=== PATIENT | female | born 1985 | race Caucasian/White ===

== ENCOUNTER 2021-04-19 19:22 | Emergency (ER) | payer MEDICAID ==
[~2021-04-19] VITALS: Ht 160 cm; Wt 73.0 kg
[2021-04-19 21:44] LABS: CHLORIDE 100 mEq/L (98-107)
[2021-04-19 21:45] LABS: BASOPHILS % 0.5 % (0.0-2.0); HEMATOCRIT. 42.9 % (36.0-48.0); HEMOGLOBIN. 14.4 g/dL (12.0-16.0); MEAN CORPUSCULAR HEMOGLOBIN 29.3 pg (28.0-32.0); MEAN PLATELET VOLUME 8.4 fl (7.4-10.4); MONOCYTES % 11.7 % (2.0-8.0); NEUTROPHILS % 78.8 % (40.0-76.0); PLATELET 338 x1000/uL (130-400); RED BLOOD CELL COUNT 4.93 mill/uL (4.2-5.4); RED CELL DISTRIBUTION WIDTH 13.6 % (11.6-14.6)
[2021-04-19 21:47] LABS: ETHANOL BLOOD < 10 mg/dL
[2021-04-19] MEDS: ACETAMINOPHEN 325MG TABLET PO STA (21:48)
[2021-04-19] MEDS: SODIUM CHLORIDE 0.9% 1,000 ML IV ONE (21:48)
[2021-04-19] MEDS: ONDANSETRON HCL 4MG/2ML INJ IV STA (21:48)
[2021-04-19 21:51] LABS: HCG SCREEN NEGATIVE
[2021-04-19 21:56] LABS: CLARITY URINE CLEAR (CLEAR); COLOR URINE YELLOW (YELLOW); KETONES URINE 1+ (NEGATIVE); LEUKOCYTE ESTERASE URINE NEGATIVE (NEGATIVE); NITRITE URINE NEGATIVE (NEGATIVE); OCCULT BLOOD URINE 2+ (NEGATIVE); PROTEIN URINE TRACE (NEGATIVE); SPECIFIC GRAVITY URINE 1.029 (1.005-1.030)
[2021-04-19 22:21] LABS: *COCAINE SCREEN URINE NEGATIVE (NEGATIVE); METHADONE URINE SCREEN NEGATIVE (NEGATIVE); OPIATES URINE SCREEN NEGATIVE (NEGATIVE)
[2021-04-19 22:22] LABS: *AMPHETAMINES SCREEN URINE NEGATIVE (NEGATIVE); *BARBITURATES SCREEN URINE NEGATIVE (NEGATIVE); *BENZODIAZEPINES SCREEN URINE NEGATIVE (NEGATIVE); CANNABINOID URINE SCREEN NEGATIVE (NEGATIVE); PHENCYCLIDINE URINE SCREEN NEGATIVE (NEGATIVE)
[2021-04-19] MEDS ORDERED: PROT40 MT (22:39)
[2021-04-19] MEDS ORDERED: ACET-2708 MT (22:39)
[2021-04-19] MEDS ORDERED: ONDA4TAB5 MT (22:39)
[2021-04-19 22:54] LABS: INR 1.1; PROTHROMBIN TIME 11.6 sec (9.6-11.0)
[2021-04-19 23:25] VITALS: BP 120/58
== END 2021-04-19 23:31 | disposition home or self-care (01) ==
LOC: ER 19:22
DX: U07.1 COVID-19 (principal); B34.9 Viral infection, unspecified; Z98.890 Other specified postprocedural states
CPT/HCPCS: 36415; 71045; 80053; 80305; 80320; 81003; 83690; 84703; 85025; 85610; 87426; 87804; 93005; 96361; 96374; 99285; J2405; J7030; G0480

== ENCOUNTER 2024-07-28 18:31 | Emergency (ER) | payer MEDICAID ==
[~2024-07-28] VITALS: Ht 160 cm; Wt 84.0 kg
[~2024-07-28 18:31] MED LIST: ACET-2708 MT; ONDA4TAB5 MT; PROT40 MT
[2024-07-28 18:38] VITALS: O2SAT 98
[2024-07-28 19:48] LABS: BASOPHILS % 2.9 % (0.0-2.0); EOSINOPHILS % 6.7 % (0.0-5.0); HEMATOCRIT. 44.1 % (36.0-48.0); HEMOGLOBIN. 15.1 g/dL (12.0-16.0); LYMPHOCYTES % 26.9 % (20.0-50.0); MEAN CORPUSCULAR HEMOGLOBIN 29.3 pg (28.0-32.0); MEAN CORPUSCULAR HGB CONC 34.3 g/dL (31.0-37.0); MEAN CORPUSCULAR VOLUME 85.5 fL (81.0-99.0); MEAN PLATELET VOLUME 8.4 fl (7.4-10.4); NEUTROPHILS % 55.5 % (40.0-76.0); PLATELET 387 x1000/uL (130-400); RED BLOOD CELL COUNT 5.16 mill/uL (4.2-5.4); RED CELL DISTRIBUTION WIDTH 13.9 % (11.6-14.6); WHITE BLOOD COUNT 6.8 x1000/uL (4.5-11.0)
[2024-07-28 20:03] LABS: CHLORIDE 107 mEq/L (98-107); POTASSIUM 3.8 mEq/L (3.5-5.1); SODIUM 140 mEq/L (136-145)
[2024-07-28 20:04] LABS: CALCIUM 9.2 mg/dL (8.7-10.4); CARBON DIOXIDE 24 mEq/L (21-32)
[2024-07-28 20:09] LABS: CREATININE 0.7 mg/dL (0.6-1.0); GLUCOSE 97 mg/dL (70-105); UREA NITROGEN BLOOD 8 mg/dL (9-23)
[2024-07-28 20:15] LABS: HCG SCREEN NEGATIVE
[2024-07-28 20:36] LABS: TROPONIN I HIGH SENSITIVITY < 4 ng/L (3.0-34)
[2024-07-28] MEDS ORDERED: GUAI-450 MT (21:07)
[2024-07-28 21:51] VITALS: BP 129/91; PULSE 91; RESP 15; TEMP 36.8; O2SAT 95
[2024-07-28] MEDS ORDERED: IOHEXOL-350 100 ML BOTTLE ONE (23:53)
== END 2024-07-28 22:03 | disposition home or self-care (01) ==
LOC: ER 18:31
DX: J06.9 Acute upper respiratory infection, unspecified (principal); R07.89 Other chest pain; J45.909 Unspecified asthma, uncomplicated; Z79.899 Other long term (current) drug therapy
CPT/HCPCS: 99285; 71275; 71045; 80048; 84703; 85025; 85379; 84484; 36415; 93005; Q9967